=== PATIENT | male | born 1970 | race Caucasian/White ===

== ENCOUNTER 2016-11-23 10:10 | Emergency (ER) | payer BC ==
[2016-11-23 10:50] VITALS: BP 126/78
--- NOTE | 2016-11-23 11:09 | UC ---
Lower Extremity/Ankle HPI - HPI Summary HPI Summary: Left posterior heel pain and tenderness for a few weeks. No known incident but he at times will use his heel to kick out a stone or something. it hurts more to dorsiflex the ankle. there is tenderness. he works as a landscapper. it hurts to walk as well. - History of Current Complaint Chief Complaint: UCLowerExtremity Stated Complaint: LEFT HEEL/ACHILLES PAIN Time Seen by Provider: 11/23/16 10:53 Hx Obtained From: Patient Onset/Duration: Gradual Onset, Lasting Weeks Severity Initially: Mild Severity Currently: Moderate Aggravating Factor(s): Standing, Ambulation Alleviating Factor(s): Rest, Elevation Able to Bear Weight: Yes - Allergies/Home Medications Allergies/Adverse Reactions: Allergies Allergy/AdvReac Type Severity Reaction Status Date / Time Penicillins Allergy Intermediate Rash Verified 11/23/16 10:44 "Sedative ... pre for Allergy "Heart Uncoded 11/23/16 10:44 surgery" Rate, Trouble Breathing" PMH/Surg Hx/FS Hx/Imm Hx Previously Healthy: No - prior orthopedic injuries. - Surgical History Surgical History: Yes Surgery Procedure, Year, and Place: Left ACL and R ACL reconstruction 1988 and 2005. plus 7 other knee surgeries. right wrist surgery-cut tendons - Family History Known Family History: Negative: Cardiac Disease, Hypertension, Diabetes - Social History Occupation: Employed Full-time Alcohol Use: Daily Alcohol Amount: wine daily Substance Use Type: None Smoking Status (MU): Current Every Day Smoker Type: Smokeless Tobacco Amount Used/How Often: 1/2 can a day Length of Time of Smoking/Using Tobacco: 26 Years Have You Smoked in the Last Year: Yes - Immunization History Most Recent Influenza Vaccination: January 2015 Most Recent Tetanus Shot: UTD Review of Systems Musculoskeletal: Other: - heel pain on the left. All Other Systems Reviewed And Are Negative: Yes Physical Exam Triage Information Reviewed: Yes Appearance: Well-Appearing, Well-Nourished, Obese Vital Signs: Initial Vital Signs Temp 98.5 F 11/23/16 10:45 Pulse 82 11/23/16 10:45 Resp 16 11/23/16 10:45 BP 126/78 11/23/16 10:45 Pulse Ox 99 11/23/16 10:45 Vital Signs Reviewed: Yes Eye Exam: Normal ENT Exam: Normal Neck exam: Normal Respiratory Exam: Normal Cardiovascular Exam: Normal Abdominal Exam: Normal Musculoskeletal Exam: Other - left heel achilles insertion tenderness and mild swelling. there is no redness. there is pain with forced dorsiflexion. Neurological Exam: Normal Psychological Exam: Normal Skin Exam: Normal Lower Extremity Course/Dx - Course Course Of Treatment: there is achilles insertion tenderness and swelling onthe left. this is c/w with tendinitis. we discussed care and f/u with [facility] which he requested as he has had prior care there in the past. on exam there is no deficit or weakness to suggest rupture. - Differential Dx/Diagnosis Differential Diagnosis/HQI/PQRI: Arthritis, Bursitis, Cellulitis, Compartment Syndrome, Dislocation, Fracture (Closed), Fracture (Open), Gout, Infection, Osteomyelitis, Puncture Wound, Sciatica, Septic Arthritis, Subungual Hematoma, Sprain, Strain, Tendonitis, Tenosynovitis Provider Diagnoses: achilles tendonitis. Discharge - Discharge Plan Condition: Good Disposition: HOME Patient Education Materials: Tendinitis (ED) Referrals: No Primary Care Phys,NOPCP [Primary Care Provider] - Timothy Fonseca MD [Medical Doctor] -
--- NOTE | 2016-11-23 11:38 | RAD ---
INDICATION: Achilles insertion pain and trauma evaluate for avulsion fracture. TECHNIQUE: 4 views of the left calcaneus were obtained. FINDINGS: The bones are in normal alignment. There is a bone spur in the region of the Achilles tendon insertion. There is irregularity of the spur at its origin on the calcaneus. A avulsion fracture of the spur cannot be excluded. Joint spaces appear maintained. IMPRESSION: MODERATE SIZE BONE SPUR ARISING FROM THE POSTERIOR CALCANEUS. AN AVULSION FRACTURE AT THE BASE OF THE SPUR CANNOT BE EXCLUDED.
== END 2016-11-23 11:36 | disposition home or self-care (01) ==
LOC: UCCORT 10:10
DX: M76.62 Achilles tendinitis, left leg (principal); E66.9 Obesity, unspecified; Z88.0 Allergy status to penicillin; F17.210 Nicotine dependence, cigarettes, uncomplicated
CPT/HCPCS: 99211; G0463

== ENCOUNTER 2017-06-24 09:50 | Emergency (ER) | payer BC ==
[2017-06-24 11:16] VITALS: BP 149/83
--- NOTE | 2017-06-24 13:51 | UC ---
Ear Complaint HPI - HPI Summary HPI Summary: 47 year old male with ear complaint. BILAT EAR PAIN, R EAR MORE PAINFUL THAN THE LEFT AT THIS TIME. EAR IS POPPING. SLIGHT DISCHARGE OUT OF R EAR THAT HAS NOW DISSIPATED. he had ear pressure 7 days ago and it got better, then returned and had the ear drainage 2 nights ago . no hearing loss. no vertigo. no fever. now has sinus pressure as well. no SOB no fever. no CP. no tinnitus [ End ] - History of Current Complaint Chief Complaint: UCEar Stated Complaint: EAR PAIN Time Seen by Provider: 06/24/17 11:36 Hx Obtained From: Patient Onset/Duration: Gradual Onset Severity Initially: Moderate Severity Currently: Moderate Pain Intensity: 2 Pain Scale Used: 0-10 Numeric - Allergies/Home Medications Allergies/Adverse Reactions: Allergies Allergy/AdvReac Type Severity Reaction Status Date / Time Penicillins Allergy Severe Hives Verified 06/24/17 11:18 "Sedative ... pre for Allergy "Heart Uncoded 06/24/17 11:18 surgery" Rate, Trouble Breathing" PMH/Surg Hx/FS Hx/Imm Hx Previously Healthy: Yes - Surgical History Surgical History: Yes Surgery Procedure, Year, and Place: Left ACL and R ACL reconstruction 1988 and 2005. plus 7 other knee surgeries. right wrist surgery-cut tendons - Family History Known Family History: Negative: Cardiac Disease, Hypertension, Diabetes - Social History Occupation: Employed Full-time Lives: With Family Alcohol Use: Daily Alcohol Amount: wine daily Substance Use Type: None Smoking Status (MU): Current Every Day Smoker Type: Smokeless Tobacco Amount Used/How Often: 1/2 can a day Length of Time of Smoking/Using Tobacco: 26 Years Have You Smoked in the Last Year: Yes - Immunization History Most Recent Influenza Vaccination: January 2015 Most Recent Tetanus Shot: UTD Review of Systems ENT: Sore Throat, Ear Ache, Nasal Discharge, Sinus Congestion, Sinus Pain/ Tenderness Respiratory: Cough Is Patient Immunocompromised?: No All Other Systems Reviewed And Are Negative: Yes Physical Exam Triage Information Reviewed: Yes Appearance: Well-Appearing, No Pain Distress, Well-Nourished Vital Signs: Initial Vital Signs Temp 97.3 F 06/24/17 11:12 Pulse 93 06/24/17 11:12 Resp 18 06/24/17 11:12 BP 149/83 06/24/17 11:12 Pulse Ox 98 06/24/17 11:12 Eye Exam: Normal ENT Exam: Normal ENT: Positive: Nasal congestion, Nasal drainage, TM bulging - right, TM dull - right, Sinus tenderness - maxillary Dental Exam: Normal Neck exam: Normal Neck: Positive: 1 Respiratory Exam: Normal Cardiovascular Exam: Normal Musculoskeletal Exam: Normal Neurological Exam: Normal Psychological Exam: Normal Skin Exam: Normal Ear Complaint Course/Dx - Course Course Of Treatment: With Right sided AOM will start treamtent. Start flonase and claritin. he is aware of SE of meds. - Differential Dx/Diagnosis Differential Diagnosis/HQI/PQRI: Otitis Externa, Otitis Media, Perforated TM Provider Diagnoses: 1. Right AOM. 2. Sinusitis Discharge - Sign-Out/Discharge Documenting (check all that apply): Discharge - Discharge Plan Condition: Good Disposition: HOME Prescriptions: Azithromycin TAB* [Zithromax TAB (Z-LEWIS) 250 mg #6 tabs] 2 tab PO .TODAY, THEN 1 DAILY #1 lewis Patient Education Materials: Ear Infection (ED) Referrals: No Primary Care Phys,NOPCP [Primary Care Provider] - If Needed Additional Instructions: Please start flonase and claritin for your symptoms as well - Billing Disposition and Condition Condition: GOOD Disposition: HOME
== END 2017-06-24 12:03 | disposition home or self-care (01) ==
LOC: UCCORT 09:50
DX: H66.91 Otitis media, unspecified, right ear (principal); J32.9 Chronic sinusitis, unspecified; F17.220 Nicotine dependence, chewing tobacco, uncomplicated; Z88.0 Allergy status to penicillin
CPT/HCPCS: 99212; G0463